=== PATIENT | female | born 1955 | race Caucasian/White ===

== ENCOUNTER → 2025-05-26 12:51 | Outpatient (REF) | payer MEDICARE, OTHER, SELFPAY ==
[2025-05-26 13:50] LABS: C-Reactive Protein 60.20 mg/L (0.0-10.00)
[2025-05-26 14:13] LABS: Hematocrit 37.3 % (37.0-47.0); Hemoglobin 10.5 g/dL (12.0-16.0); Mean Corp Hgb Conc. 28.2 g/dL (33.0-37.0); Mean Corpuscular Volume 69.9 fL (81.0-99.0); Platelet Count 234 10^3/uL (130-400); Red Cell Dist. Width 18.9 % (11.5-14.5)
[2025-05-26 20:11] LABS: Nucleated Red Blood Cells % 0 %
[2025-05-26 20:15] LABS: Anisocytosis 1+; Normal RBC Morphology No
[2025-05-26 20:17] LABS: Acanthocytes 2+; Hypochromasia 1+; Ovalocytes 2+; Poikilocytosis 1+
[2025-05-26 20:18] LABS: Tear Drop Red Blood Cells 1+
== END ==
LOC: CLAB 12:51
PROVIDERS: ATTENDING PHYSICIAN Physician Assistant Medical
DX: R51.9 Headache, unspecified (principal); R52 Pain, unspecified; R68.89 Other general symptoms and signs
CPT/HCPCS: 85025; 85652; 86140; 86618

== ENCOUNTER → 2025-05-27 10:34 | Outpatient (REF) | payer MEDICARE, OTHER, SELFPAY ==
[2025-05-27 11:57] LABS: Hematocrit 34.5 % (37.0-47.0); Hemoglobin 10.7 g/dL (12.0-16.0); Mean Corp Hgb Conc. 31.0 g/dL (33.0-37.0); Mean Corpuscular Volume 62.6 fL (81.0-99.0); Nucleated Red Blood Cells % 0 %; Platelet Count 263 10^3/uL (130-400); Red Cell Dist. Width 16.8 % (11.5-14.5)
[2025-05-27 12:44] LABS: C-Reactive Protein 60.30 mg/L (0.0-10.00)
== END ==
LOC: REG 10:34
PROVIDERS: ATTENDING PHYSICIAN Physician Assistant Medical; FAMILY PHYSICIAN Family Medicine
DX: R70.0 Elevated erythrocyte sedimentation rate (principal); R79.82 Elevated C-reactive protein (CRP); D56.3 Thalassemia minor; R23.8 Other skin changes
CPT/HCPCS: 36415; 85025; 85652; 86140; 86694; 86787

== ENCOUNTER → 2025-06-08 10:48 | Outpatient (REF) | payer MEDICARE, OTHER, SELFPAY | LOC: RAD 10:48 | PROVIDERS: ATTENDING PHYSICIAN Family Medicine | DX: R05.8 Other specified cough (principal) | CPT/HCPCS: 71046 ==